=== PATIENT | female | born 2000 | race Two or more races ===

== ENCOUNTER 2022-11-11 20:58 | Emergency (ER) | payer OTHER ==
[~2022-11-11] VITALS: Ht 157.5 cm; Wt 63.5 kg
[2022-11-11] MEDS ORDERED: DICLOFENAC POTA50 MG PO (23:08)
[2022-11-11] MEDS ORDERED: NORFLEX100MG PO (23:09)
== END 2022-11-11 23:14 | disposition home or self-care (01) ==
LOC: ER 20:58
DX: S09.8XXA Other specified injuries of head, initial encounter (principal); Y33.XXXA Other specified events, undetermined intent, initial encounter; Y93.89 Activity, other specified; Y92.89 Other specified places as the place of occurrence of the external cause; Y99.8 Other external cause status; M62.838 Other muscle spasm

== ENCOUNTER → 2023-01-05 | Emergency (ER) | payer OTHER ==
[~2023-01-05] VITALS: Ht 157.5 cm; Wt 61.2 kg
[~2023-01-05] MED LIST: DICLOFENAC POTA50 MG PO; NORFLEX100MG PO
== END | disposition left against medical advice (07) ==
LOC: ER 00:22
DX: Z53.21 Procedure and treatment not carried out due to patient leaving prior to being seen by health care provider (principal)

== ENCOUNTER 2023-02-05 15:30 | Emergency (ER) | payer OTHER ==
[~2023-02-05] VITALS: Ht 157.5 cm; Wt 59.0 kg
== END 2023-02-05 19:42 | disposition home or self-care (01) ==
LOC: ER 15:30
DX: J06.9 Acute upper respiratory infection, unspecified (principal); Z20.822 Contact with and (suspected) exposure to COVID-19; Z91.018 Allergy to other foods

== ENCOUNTER 2023-02-14 17:28 | Emergency (ER) | payer OTHER ==
[~2023-02-14] VITALS: Ht 157.5 cm; Wt 59.0 kg
== END 2023-02-14 22:44 | disposition home or self-care (01) ==
LOC: ER 17:29
DX: M54.2 Cervicalgia (principal); V43.52XA Car driver injured in collision with other type car in traffic accident, initial encounter; Y93.89 Activity, other specified; Y92.413 State road as the place of occurrence of the external cause; Z91.018 Allergy to other foods
CPT/HCPCS: 72040; 73560; 96372; 99284; J1885

== ENCOUNTER → 2023-03-03 | Emergency (ER) | payer OTHER ==
[~2023-03-03] VITALS: Ht 154.9 cm; Wt 59.0 kg
[~2023-03-03] MED LIST changes: +ONDANSETRON HCL4 MG PO; +PEPCID AC20 MG PO; +TUSSIN DM LIQU118 ML PO; +ZITHROMAX500 MG PO
== END | disposition left against medical advice (07) ==
LOC: ER 14:47
DX: Z53.21 Procedure and treatment not carried out due to patient leaving prior to being seen by health care provider (principal)

== ENCOUNTER 2023-03-05 12:07 | Emergency (ER) | payer OTHER ==
[~2023-03-05] VITALS: Ht 157.5 cm; Wt 63.5 kg
[~2023-03-05 12:07] MED LIST changes: -ONDANSETRON HCL4 MG PO; -PEPCID AC20 MG PO; -TUSSIN DM LIQU118 ML PO; -ZITHROMAX500 MG PO
[2023-03-05] MEDS ORDERED: TUSSIN DM LIQU118 ML PO (18:13)
[2023-03-05] MEDS ORDERED: ZITHROMAX500 MG PO (18:13)
[2023-03-05] MEDS ORDERED: PEPCID AC20 MG PO (18:13)
[2023-03-05] MEDS ORDERED: ONDANSETRON HCL4 MG PO (18:13)
== END 2023-03-05 18:23 | disposition home or self-care (01) ==
LOC: ER 12:07
DX: J06.9 Acute upper respiratory infection, unspecified (principal); Z91.018 Allergy to other foods; Z20.822 Contact with and (suspected) exposure to COVID-19
CPT/HCPCS: 36415; 96365; 99284; J2405; J3490